=== PATIENT | male | born 2005 | race Caucasian/White ===

== ENCOUNTER 2024-09-17 01:50 | Emergency (ER) | payer BC | END 2024-09-17 02:48 | disposition home or self-care (01) | LOC: VM.ED 01:50 | DX: S50.02XA Contusion of left elbow, initial encounter (principal); W13.0XXA Fall from, out of or through balcony, initial encounter; Y92.039 Unspecified place in apartment as the place of occurrence of the external cause | CPT/HCPCS: 73080-LT; 99283 ==